=== PATIENT | female | born 1955 | race Caucasian/White ===

== ENCOUNTER 2023-06-02 18:05 | Emergency (ER) | payer BC, SELFPAY ==
[2023-06-02] VITALS (17 sets, daily range): BP systolic 149–162; BP diastolic 84–94; PULSE 65–84; RESP 11–20; TEMP 36.8; O2SAT 97–99; BMI 23.8
--- NOTE | 2023-06-02 18:24 | ECG_ITS ---
[facility] Test Date: 2023-06-02 Pat Name: SONIA OCONNOR Department: Room: - Gender: Female [employer] Professional: : 1955 Requested By: [id number] Order Number: [id number] Reading MD: ANNA MYLES Measurements Intervals [place]en Rate: 65 P: 61 NH: 152 QRS: 61 QRSD: 66 T: 54 QT: 394 QTc: 406 Interpretive Statements 1100 Sinus rhythm 8102 Low QRS voltage in chest leads 9120 atypical ECG No previous ECG available for comparison Electronically Signed On 06-04-2023 5:47:20 EDT by ANNA MYLES
--- NOTE | 2023-06-02 18:26 | ED.CHESTPAI1 ---
HPI - Chest Pain General Chief Complaint: Chest Pain Stated Complaint: Adbominal Pain Time Seen by Provider: 06/02/23 18:17 Source: patient Mode of arrival: walk-in Limitations: no limitations History of Present Illness HPI narrative: patient is a 68-year-old female who presents to the emergency department for the evaluation of left upper quadrant abdominal pain radiating into the chest for the last hour. She states that the pain is subsiding some at this time. It does radiate into her back. She denies fevers, she had upper respiratory symptoms over a week ago that have resolved at this time. She takes medication for acid reflux. She has had no vomiting or diarrhea. No urinary symptoms. No flank pain. She does use Ozempic. She denies any history of coronary artery disease, diabetes, high blood pressure. Symptoms began at rest. Risk Factors Coronary artery disease risk factors: none Related Data Home Medications Medication Instructions Recorded Confirmed omeprazole 40 mg capsule,delayed 40 mg PO DAILY 06/02/23 06/02/23 release semaglutide 1 mg/dose (2 mg/1.5 1 mg subcut QWEEK 06/02/23 06/02/23 mL) subcutaneous pen injector (Ozempic) Previous Rx's Medication Instructions Recorded hyoscyamine sulfate 0.125 mg 0.125 mg PO Q6H PRN abdominal pain 06/02/23 tablet (Levsin) #12 tabs ondansetron 4 mg disintegrating 4 mg PO Q6H PRN nausea and 06/02/23 tablet vomiting #12 tabs sucralfate 1 gram tablet (Carafate) 1 g PO Q6H PRN abdominal pain #12 06/02/23 tabs Allergies Allergy/AdvReac Type Severity Reaction Status Date / Time codeine AdvReac Nausea Verified 06/02/23 18:22 Review of Systems ROS Constitutional Denies: fever or chills Cardiovascular Reports: chest pain; Denies: shortness of breath when lying down Respiratory Denies: shortness of breath or cough Gastrointestinal Reports: abdominal pain; Denies: nausea, vomiting or diarrhea Genitourinary Denies: painful urination Musculoskeletal Reports: back pain Integumentary/Breast Denies: rash Neurological Denies: headache Hematologic/Lymphatic Denies: easy bruising Allergic/Immunologic Denies: hives PFSH PFSH Social History Smoking status: Former smoker Exam Narrative Exam Narrative: Gen.: Awake, alert, in no distress Head: Normocephalic, atraumatic ENT: Moist mucous membranes Respiratory: No respiratory distress, lungs clear bilaterally Cardio: Regular rate and rhythm Gastrointestinal: Abdomen is soft, nondistended and nontender to palpation; no guarding or rebound, no pulsatile masses Extremities: Moves extremities equally, no pedal edema Psych: Normal mood and affect Neuro: No focal neuro deficit Skin: Warm, dry, intact Constitutional Vital Signs, click to edit/add: Last Vital Signs Temp 98.2 F 06/02/23 18:17 Pulse 66 06/02/23 19:40 Resp 16 06/02/23 19:40 BP 149/84 H 06/02/23 19:38 Pulse Ox 98 06/02/23 19:40 O2 Del Method Room Air 06/02/23 18:30 Course Vital Signs Vital signs: Vital Signs Pulse Rate 66 06/02/23 18:14 Respiratory Rate 14 06/02/23 18:14 Pulse Oximetry 99 06/02/23 18:14 Temperature 98.2 F 06/02/23 18:17 Pulse Rate 66 06/02/23 19:40 Respiratory Rate 16 06/02/23 19:40 Blood Pressure 149/84 H 06/02/23 19:38 Pulse Oximetry 98 06/02/23 19:40 Oxygen Delivery Method Room Air 06/02/23 18:30 MDM - Chest Pain MDM Narrative Medical decision making narrative: patient with no EKG changes, stable lab studies. Minimal elevation of LFTs noted. Bilirubin is normal and the patient has no right upper quadrant tenderness. We had difficulty obtaining IV access and the patient refused additional attempts to place an IV. I tried to explain to the patient the need for IV access given chest pain and abdominal pain in the Emergency Room. She is agreeable to a lab draw but no further attempts for IV. Troponin is within normal limits, abdominal x-rays and chest x-ray with no acute process although by my interpretation, the patient has constipation noted to the left abdomen. Chest pain resolved in the Emergency Room after gastrointestinal cocktail, aspirin and Zofran. She was reexamined by attending physician, Dr. Lea, she is not agreeable to staying for repeat troponin. Abdomen is soft and benign on recheck by attending physician. Heart score is low as the patient has no significant risk factors. She is instructed to return to the Emergency Room if symptoms change or worsen. She will be placed on Carafate, Zofran, Levsin. Return to the Emergency Room if symptoms change or worsen Medical Records Data Attestation: I reviewed the patient's medical records. Lab Data Attestation: I reviewed the patient's lab results. Labs: Lab Results 06/02/23 Range/Units 18:45 WBC 7.3 (4.0-11.0) 10^3/uL RBC 4.41 (4.20-5.40) 10^6/uL Hgb 13.8 (12.0-16.0) g/dL Hct 41.5 (36.0-48.0) % MCV 94.1 (81.0-99.0) fL MCH 31.3 (26.7-34.0) pg MCHC 33.3 (29.9-35.2) g/dL RDW 12.2 (11.0-15.0) % Plt Count 243 (150-450) 10^3/uL MPV 10.7 (9.5-13.5) fL Neut % (Auto) 48.4 (43.0-75.0) % Lymph % (Auto) 38.5 (20.5-60.0) % [place] % (Auto) 9.6 (1.7-12.0) % Eos % (Auto) 2.3 (0.9-7.0) % Baso % (Auto) 1.1 (0.2-2.0) % Neut # (Auto) 3.5 (1.4-6.5) 10^3/uL Lymph # (Auto) 2.8 (1.2-3.8) 10^3/uL [place] # (Auto) 0.7 (0.3-0.8) 10^3/uL Eos # (Auto) 0.2 (0.0-0.7) 10^3/uL Baso # (Auto) 0.1 (0.0-0.1) 10^3/uL Abs Immat Gran (auto) 0.01 (0.00-0.03) 10^3/uL Imm/Tot Granulo (auto) 0.1 (0.0-0.5) % PT 10.1 (9.0-11.6) sec INR 0.95 APTT 35.9 (22.3-36.2) sec Sodium 139 (136-145) mmol/L Potassium 3.7 (3.5-5.1) mmol/L Chloride 104 (98-107) mmol/L Carbon Dioxide 29.2 (21.0-32.0) mmol/L Anion Gap 9.5 BUN 13.0 (7.0-18.0) mg/dL Creatinine 0.74 (0.55-1.02) mg/dL Est GFR ( Amer) >60 (>=60) Est GFR (Non-Af Amer) >60 (>=60) BUN/Creatinine Ratio 17.6 Glucose 88 (74-106) mg/dL Calcium 8.7 (8.5-10.1) mg/dL Total Bilirubin 0.5 (0.2-1.0) mg/dL AST 117 H (15-37) U/L ALT 71 H (14-59) U/L Alkaline Phosphatase 75 (46-116) U/L Troponin I High Sens <4.0 L (4.0-51.3) pg/mL Total Protein 7.2 (6.4-8.2) g/dL Albumin 3.8 (3.4-5.0) g/dL Globulin 3.4 g/dL Albumin/Globulin Ratio 1.1 Lipase 80.0 (73.0-393.0) U/L Imaging Data Abdominal x-ray: Attestation: I have reviewed the pertinent imaging results. Radiologist's impression: Procedure: XR acute abdomen series EXAM TYPE: XR acute abdomen series EXAM DATE AND TIME: 06/02/2023 4:26 PM PDT INDICATION: 68 years old Female with COMPARISON: None. TECHNIQUE: Frontal view of the chest. Supine and upright views of the abdomen. FINDINGS: No pneumothorax, pleural effusion or focal consolidation. Heart size is within normal limits. Normal nonobstructive bowel gas pattern. No subdiaphragmatic free intraperitoneal air. No pathologic calcifications. There is an S-shaped thoracolumbar scoliosis, convexity of the thoracic curve to the right and the lumbar curve to the left. IMPRESSION: Nonspecific abdomen. Electronically authenticated by: Lili BUCHANAN Date: 06/02/2023 19:59 ECG Data Attestation: I personally reviewed and interpreted this ECG as follows: (normal sinus rhythm at a rate of sixty-five, no acute ST elevation or ectopy. EKG reviewed by attending physician) Heart Score History: Slightly/Non-Suspicious ECG: Normal Age: >45-<65 years Risk Factors: 1 or 2 Risk Factors Troponin: <Normal Limit Total Heart Score Recommendations & Risks:: 2 Discharge Plan Discharge Chief Complaint: Chest Pain Clinical Impression: Abdominal pain, Chest pain Patient Disposition: Home, Self-Care Time of Disposition Decision: 20:16 Condition: Good Prescriptions / Home Meds: New sucralfate [Carafate] 1 gram tablet 1 g PO Q6H PRN (Reason: abdominal pain) Qty: 12 0RF hyoscyamine sulfate [Levsin] 0.125 mg tablet 0.125 mg PO Q6H PRN (Reason: abdominal pain) Qty: 12 0RF ondansetron 4 mg tablet,disintegrating 4 mg PO Q6H PRN (Reason: nausea and vomiting) Qty: 12 0RF No Action Ozempic 1 mg/dose (2 mg/1.5 mL) pen injector 1 mg subcut QWEEK omeprazole 40 mg capsule,delayed release(DR/EC) 40 mg PO DAILY Instructions: Chest Pain (ED), Abdominal Pain (ED) Stand Alone Forms: Portal Instructions Referrals: Physician,Non-Staff, MD [Primary Care Provider] - 1 week
[2023-06-02] MEDS: ASPIRIN 81 MG TAB.CHEW 162 MG PO (18:49)
[2023-06-02] MEDS: ONDANSETRON 4 MG RAPDIS TABLET SL (18:49)
[2023-06-02] MEDS: lidocaine HCL 15 ML, MAG HYDROX/ALUMINUM HYD/SIMETH 30 ML, HYOSCYAMINE SULFATE 0.25 MG PO (18:50)
[2023-06-02 18:52] LABS: Basophils Absolute Auto 0.1 10^3/uL (0.0-0.1); Basophils Percent Auto 1.1 % (0.2-2.0); Eosinophils Absolute Auto 0.2 10^3/uL (0.0-0.7); Eosinophils Percent Auto 2.3 % (0.9-7.0); Hematocrit 41.5 % (36.0-48.0); Hemoglobin 13.8 g/dL (12.0-16.0); Immature Granulocytes Abs Auto 0.01 10^3/uL (0.00-0.03); Immature Granulocytes Pct Auto 0.1 % (0.0-0.5); Lymphocytes Absolute Auto 2.8 10^3/uL (1.2-3.8); Lymphocytes Percent Auto 38.5 % (20.5-60.0); Mean Corpuscular HGB Conc 33.3 g/dL (29.9-35.2); Mean Corpuscular Hemoglobin 31.3 pg (26.7-34.0); Mean Corpuscular Volume 94.1 fL (81.0-99.0); Mean Platelet Volume 10.7 fL (9.5-13.5); Monocytes Absolute Auto 0.7 10^3/uL (0.3-0.8); Monocytes Percent Auto 9.6 % (1.7-12.0); Neutrophils Absolute Auto 3.5 10^3/uL (1.4-6.5); Neutrophils Percent Auto 48.4 % (43.0-75.0); Platelet Count 243 10^3/uL (150-450); Red Blood Count 4.41 10^6/uL (4.20-5.40); Red Cell Distribution Width 12.2 % (11.0-15.0); White Blood Count 7.3 10^3/uL (4.0-11.0)
[2023-06-02 19:07] LABS: Alanine Aminotransferase 71 U/L (14-59); Albumin Globulin Ratio 1.1; Albumin Level 3.8 g/dL (3.4-5.0); Alkaline Phosphatase 75 U/L (46-116); Anion Gap 9.5; Aspartate Amino Transferase 117 U/L (15-37); BUN Creatinine Ratio 17.6; Bilirubin Total 0.5 mg/dL (0.2-1.0); Calcium 8.7 mg/dL (8.5-10.1); Carbon Dioxide 29.2 mmol/L (21.0-32.0); Chloride 104 mmol/L (98-107); Estimated GFR (African America >60 (>=60); Estimated GFR (Non-African Ame >60 (>=60); Globulin 3.4 g/dL; Glucose 88 mg/dL (74-106); INR 0.95; Partial Thromboplastin Time 35.9 sec (22.3-36.2); Potassium 3.7 mmol/L (3.5-5.1); Prothrombin Time 10.1 sec (9.0-11.6); Sodium 139 mmol/L (136-145); Total Protein 7.2 g/dL (6.4-8.2)
[2023-06-02 19:10] LABS: Troponin I High Sensitivity <4.0 pg/mL (4.0-51.3)
--- NOTE | 2023-06-02 19:20 | XR_ITS ---
The [address] [address] Patient Name: SONIA OCONNOR MRN: [id number] date: 1955 Sex: F Assigned Patient Location: ER Current Patient Location: ED.MAIN Accession/Order Number: [id number] Exam Date: 06/02/2023 19:26 Report Date: 06/02/2023 19:59 At the request of: AMBER BUNCH Procedure: XR acute abdomen series EXAM TYPE: XR acute abdomen series EXAM DATE AND TIME: 06/02/2023 4:26 PM PDT INDICATION: 68 years old Female with COMPARISON: None. TECHNIQUE: Frontal view of the chest. Supine and upright views of the abdomen. FINDINGS: No pneumothorax, pleural effusion or focal consolidation. Heart size is within normal limits. Normal nonobstructive bowel gas pattern. No subdiaphragmatic free intraperitoneal air. No pathologic calcifications. There is an S-shaped thoracolumbar scoliosis, convexity of the thoracic curve to the right and the lumbar curve to the left. XR/XR acute abdomen series IMPRESSION: Nonspecific abdomen. Electronically authenticated by: Lili BUCHANAN Date: 06/02/2023 19:59
[2023-06-02 21:54] LABS: Bilirubin Urine NEGATIVE (NEGATIVE); Blood Urine NEGATIVE (NEGATIVE); Clarity Urine CLEAR (CLEAR); Color Urine LT. YELLOW (YELLOW); Glucose Urine UA NEGATIVE (NEGATIVE); Ketones Urine NEGATIVE (NEGATIVE); Leukocyte Esterase Urine NEGATIVE (NEGATIVE); Nitrite Urine NEGATIVE (NEGATIVE); Protein Urine NEGATIVE (NEG/TRACE)
[2023-06-02 21:55] LABS: Urine Microscopic Indicated NO
== END 2023-06-02 20:26 | disposition home or self-care (01) ==
PROVIDERS: Physician Assistant; Emergency Provider Internal Medicine
DX: R07.9 Chest pain, unspecified (principal); R10.9 Unspecified abdominal pain; K21.9 Gastro-esophageal reflux disease without esophagitis; Z79.899 Other long term (current) drug therapy; Z87.891 Personal history of nicotine dependence
CPT/HCPCS: 36415; 74022; 80053; 81003; 83690; 84484; 85025; 85610; 85730; 93005; 99285

== ENCOUNTER 2023-12-17 21:55 | Emergency (ER) | payer BC, SELFPAY ==
[2023-12-17 22:07] VITALS: BP 132/90; PULSE 104; TEMP 37.4; O2SAT 97; BMI 24.9
[2023-12-17 22:51] LABS: Influenza Virus A Antigen Negative; Influenza Virus B Antigen Negative; SARS-CoV-2 Ag NEGATIVE (NEGATIVE)
[2023-12-17 22:52] LABS: Internal Control Within Normal Limits
[2023-12-17] MEDS: FAMOTIDINE/PF 20 MG/2 ML VIAL IV (23:03)
[2023-12-17] MEDS: ONDANSETRON PF 4 MG/2 ML VIAL IV (23:03)
[2023-12-17] MEDS: 0.9 % SODIUM CHLORIDE 1,000 ML 1000 ML IV (23:04)
[2023-12-17 23:07] LABS: Hematocrit 46.2 % (36.0-48.0); Mean Corpuscular HGB Conc 32.5 g/dL (29.9-35.2); Mean Corpuscular Hemoglobin 31.4 pg (26.7-34.0); Mean Corpuscular Volume 96.9 fL (81.0-99.0); Mean Platelet Volume 11.9 fL (9.5-13.5); Platelet Count 177 10^3/uL (150-450); Red Blood Count 4.77 10^6/uL (4.20-5.40); Red Cell Distribution Width 12.8 % (11.0-15.0); White Blood Count 11.9 10^3/uL (4.0-11.0)
--- NOTE | 2023-12-17 23:15 | ED_ITS ---
HPI HPI - General Adult General Chief complaint: Nausea/Vomiting/Diarrhea Stated complaint: VOMITTING, DIARRHEA Time Seen by Provider: 12/17/23 22:13 Source: patient Mode of arrival: Wheelchair Limitations: no limitations History of Present Illness HPI narrative: This 68-year-old female presents for evaluation of nausea, vomiting and diarrhea that has been constant since 4 PM. 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 She is having chills, shakes and has had multiple episodes of vomiting and diarrhea. She is having abdominal cramping and states she feels like she has done 100 situps. She denies any chest pain or shortness of breath. She is not diabetic. She does not have a history of any kidney disease. She denies any recent change in her diet. She has not had any recent travel or cruciate vacations. Related Data Home Medications ?Medication ?Instructions ?Recorded ?Confirmed famotidine 20 mg tablet 20 mg PO .qhs 12/17/23 12/17/23 pantoprazole 40 mg tablet,delayed 40 mg PO QDAY 12/17/23 12/17/23 release Allergies Allergy/AdvReac Type Severity Reaction Status Date / Time codeine AdvReac Nausea Verified 12/17/23 22:07 Opioid HPI Opioid Management Most Recent Opioid Data: Last Pain Scale 5 06/02/23 18:30 Last ED Pain Assessment 06/02/23 18:30 Review of Systems ROS Status of ROS 10 or more systems reviewed and unremark able except as noted in history and below PFSH PFSH Social History Smoking status: Former smoker Exam Narrative Exam Narrative: Nurses note and vital signs reviewed and patient is not hypoxic. She is noted to be mildly tachycardic with a pulse 104 on arrival with a low-grade fever 99.4. General: Actively vomiting adult female, no respiratory distress Skin: Warm, slightly diaphoretic Head: Normocephalic, atraumatic Eye: Normal conjunctiva, no drainage, EOMI. PERRL. No scleral icterus Ears, Nose, Mouth, and Throat: oral mucosa is dry Cardiovascular: Regular Rate and Rhythm S1S2, no murmurs, rubsor gallops Respiratory: Patient is in no distress, no accessory muscle use, lungs are clear to auscultation, no wheezing, rales or rhonchi Back: non-tender, no CVA tenderness bilaterally to percussion. GI: Soft, flat, generalized tenderness with no rebound, guarding or rigidity Musculoskeletal: The patient has no evidence of calf tenderness, no pitting edema, symmetrical pulses noted bilaterally Neurological: A&O x4, normal speech Psychiatric: Cooperative Constitutional Vital Signs, click to edit/add: Last Vital Signs Temp 99.1 F 12/17/23 23:41 Pulse 91 H 12/17/23 23:41 Resp 16 12/17/23 23:41 BP 99/55 12/17/23 23:41 Pulse Ox 100 12/17/23 23:41 O2 Del Method Room Air 12/17/23 23:41 Course Vital Signs Vital signs: Vital Signs Temperature 99.4 F 12/17/23 22:07 Pulse Rate 104 H 12/17/23 22:07 Respiratory Rate 16 12/17/23 22:07 Blood Pressure 132/90 12/17/23 22:07 Pulse Oximetry 97 12/17/23 22:07 Oxygen Delivery Method Room Air 12/17/23 22:07 Temperature 99.1 F 12/17/23 23:41 Pulse Rate 91 H 12/17/23 23:41 Respiratory Rate 16 12/17/23 23:41 Blood Pressure 99/55 12/17/23 23:41 Pulse Oximetry 100 12/17/23 23:41 Oxygen Delivery Method Room Air 12/17/23 23:41 Medical Decision Making MDM Narrative Medical decision making narrative: This 68-year-old female presents for evaluation of acute onset of nausea vomiting diarrhea. Her grandson who is 3 years old had similar symptoms and she babysits for him. She also has been told that she had gallstones in the past. Arrival she was actively vomiting. She states she had been nonstop vomiting for the past 4 hours. He states she felt like she had been doing sit ups but her abdomen is otherwise soft and nontender. She had not had a fever but was having some chills. An IV was placed and she was medicated with IV fluids Zofran Pepcid and Toradol. On reevaluation she was feeling much better. She was tolerating ice chips. Team labs are ordered and are reviewed. She is a mildly elevated white count of 11.9 with a normal hemoglobin. Electrolytes are normal. She has elevated A LT and alkaline phosphatase with a normal AST, total bilirubin and lipase. In light of the elevated LFTs and history of gallstones a CT scan was ordered. CT scan is included in the body of this report. It does show a gallstone in the fundus of the gallbladder with a large volume of liquid stool throughout the small bowel. There is no sign of bowel obstruction. There is also some edema noted in the cervix. 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 She is not having any vaginal bleeding or lower abdominal pain. There is no ultrasound available at this time to further evaluate this. She was given a copy of her CT scan to share with her CYBER SOFTWARE ENGINEER and family physician. At this time she is feeling better and wishes to be discharged home. She'll be given an additional dose of Zofran before her IV is taken out. She will be discharged home at the Zofran to take for ongoing nausea. I discouraged her from using antidiarrheals as her symptoms are likely viral in nature and/or food borne as the CT scan noted. Either way I suggested that she not take antidiarrheals as it would be better for her to get the diarrhea out of her abdomen. She was encouraged to follow a clear liquid diet slowly advance her diet as tolerated. She will be referred outpatient general surgery for further evaluation of the gallstones seen on the CAT scan. Medical Records Medical records narrative: [place] [address] CT Scan Report Signed Patient: SONIA COLBY MR#: [id number] : 1955 Acct:[id number] Age/Sex: 68 / F ADM Date: 12/17/23 Loc: ER Attending Dr: Ordering Physician: Giselle Villalobos Date of Service: 12/18/23 Procedure(s): CT abdomen pelvis w con Accession Number(s): [id number] cc: Physician,Non-Staff Zaki~ [facility] [place] [id number] Patient Name: SONIA COLBY MRN: [id number] date: 1955 Sex: F Assigned Patient Location: ER Current Patient Location: ER Accession/Order Number: [id number] Exam Date: 12/18/2023 00:58 Report Date: 12/18/2023 01:34 At the request of: GISELLE MARKER Procedure: CT abdomen pelvis w con CT OF THE ABDOMEN AND PELVIS WITH CONTRAST: 12/18/2023 12:58 AM EDT CLINICAL HISTORY: Abdominal pain with elevated LFTs. Nausea, vomiting and diarrhea x1 day. COMPARISONS: None. TECHNIQUE: Thin section axial CT images were obtained from the lung bases to the pubis symphysis. This CT exam was performed using one or more of the following dose reduction techniques: Automated exposure control, adjustment of the mA and/or kV according to patient size, or use of iterative reconstruction technique. Thin section coronal and sagittal images were reconstructed from the axial data set. All images were reviewed and interpreted. CONTRAST: Intravenous contrast was administered. Type and amount is documented at the local institution. FINDINGS: LUNG BASES: No consolidation or pleural fluid. LIVER: Normal. Normal portal vein enhancement. GALLBLADDER: There is a distal peripherally calcified gallstone in the distal fundus. Gallbladder mildly distended with some uniform a mild peripheral wall enhancement and thickening with trace pericholecystic fluid. Possibility of early acute cholecystitis is raised. BILIARY TREE: No intrahepatic or common bile duct distention. PANCREAS: Normal. SPLEEN: Normal. ADRENALS: Normal. KIDNEYS: Normal, without urolithiasis or hydronephrosis. URINARY BLADDER: Grossly unremarkable. PELVIC STRUCTURES: There is question of some mild inflammation region of the cervix. Correlate with clinical exam and direct inspection/visualization. The uterus and ovaries are otherwise negative. Could be menstrual related. Exclude cervicitis. GE JUNCTION, STOMACH AND BOWEL: There is a small sliding-type hernia. There is gastroesophageal reflux with fluid in the distal esophagus. Fluid-filled stomach with some mild mild uniform wall enhancement gastric cardia and fundus and mid body with some borderline wall thickening. Fluid extends into the duodenum and throughout multiple proximal small bowel loops and distal small bowel loops in the abdomen and pelvis. Small bowel is not overly distended. There is some mild uniform enhancement of bowel and borderline thickening in the jejunal/left upper quadrant loops. Findings suggest acute gastroenteritis likely due to food borne illness. Correlate symptomatically and with history. No evidence of bowel obstruction. Contiguous fluid throughout distal nondistended small bowel loops are noted and large bowel in the cecum and ascending portions as well. Large bowel otherwise negative. There is no significant diverticulosis. There is no evidence of diverticulitis. No acute colitis. APPENDIX: No active disease with normal appendix. LYMPH NODES: No pathologically enlarged lymph nodes identified. PERITONEUM: No intraperitoneal free air. No free intraperitoneal fluid. MESENTERY: Unremarkable. RETROPERITONEUM: The retroperitoneum is unremarkable. AORTA: Normal caliber aorta and iliac arteries. Aortic caliber BODY WALL: No body wall mass. OSSEOUS STRUCTURES: Levoscoliotic curvature upper lumbar spine with some degenerative disc and endplate changes at lower thoracic and upper lumbar disc levels. No acute osseous findings or destructive process. No fractures. CT/CT abdomen pelvis w con IMPRESSION: 1. Distal gallbladder stone with mild uniform wall thickening and enhancement of pericholecystic fluid raising concern for acute early cholecystitis. 2. Nonspecific fluid throughout stomach, small bowel loops extending to cecum and ascending large bowel with some mild borderline thickening of gastric and left upper quadrant jejunal loops. Could reflect nonspecific acute gastroenteritis. 3. Slightly prominent appearance of cervix with some edema surrounding the cervix of uterus. Query acute cervicitis versus underlying mass. Correlate with clinical exam and direct visualization. Electronically authenticated by: ELIZABETH HINTON Date: 12/18/2023 01:34 Lab Data Labs: Lab Results 12/17/23 12/17/23 Range/Units 22:15 22:50 WBC 11.9 H (4.0-11.0) 10^3/uL RBC 4.77 (4.20-5.40) 10^6/uL Hgb 15.0 (12.0-16.0) g/dL Hct 46.2 (36.0-48.0) % MCV 96.9 (81.0-99.0) fL MCH 31.4 (26.7-34.0) pg MCHC 32.5 (29.9-35.2) g/dL RDW 12.8 (11.0-15.0) % Plt Count 177 (150-450) 10^3/uL MPV 11.9 (9.5-13.5) fL Seg Neuts % (Manual) 82.0 Band Neutrophils % 16.0 H (0-5) % Lymphocytes % (Manual) 1.0 L (20.5-60.0) % Atypical Lymphs % (Man) 0.0 % Monocytes % (Manual) 1.0 L (1.7-12.0) % Eosinophils % (Manual) 0.0 L (0.9-7.0) % Basophils % (Manual) 0.0 L (0.2-2.0) % Neutrophils # (Manual) 9.75 H (1.4-6.5) 10^3/uL Band Neutrophils # 1.9 H (0.0-0.3) 10^3/uL Lymphocytes # (Manual) 0.11 L (1.20-3.80) 10^3/uL Abs Atypical Lymphs Man 0.00 Monocytes # (Manual) 0.11 L (0.30-0.80) 10^3/uL Eosinophils # (Manual) 0.00 (0.00-0.70) 10^3/uL Basophils # (Manual) 0.00 (0.00-0.10) 10^3/uL Sodium 141 (136-145) mmol/L Potassium 3.9 (3.5-5.1) mmol/L Chloride 104 (98-107) mmol/L Carbon Dioxide 24.5 (21.0-32.0) mmol/L Anion Gap 16.4 BUN 17.0 (7.0-18.0) mg/dL Creatinine 0.83 (0.55-1.02) mg/dL Est GFR ( Amer) >60 (>=60) Est GFR (Non-Af Amer) >60 (>=60) BUN/Creatinine Ratio 20.5 Glucose 160 H (74-106) mg/dL Calcium 8.9 (8.5-10.1) mg/dL Total Bilirubin 0.9 (0.2-1.0) mg/dL AST 33 (15-37) U/L ALT 258 H (14-59) U/L Alkaline Phosphatase 129 H (46-116) U/L Total Protein 7.7 (6.4-8.2) g/dL Albumin 3.9 (3.4-5.0) g/dL Globulin 3.8 g/dL Albumin/Globulin Ratio 1.0 Lipase 24.0 (16.0-77.0) U/L Influenza Type A Ag Negative Influenza Type B Ag Negative SARS-CoV-2 Ag (CV2AG) Negative (NEGATIVE) Discharge Plan Discharge Stand Alone Forms: Portal Instructions Chief Complaint: Nausea/Vomiting/Diarrhea Clinical Impression: Gastroenteritis Patient Disposition: Home, Self-Care Time of Disposition Decision: 01:50 Condition: Good Prescriptions / Home Meds: No Action famotidine 20 mg tablet 20 mg PO .qhs pantoprazole 40 mg tablet,delayed release (DR/EC) 40 mg PO QDAY Print Language: Bahamian Instructions: Gastroenteritis (ED), Acute Nausea and Vomiting (ED), Acute Diarrhea (ED) Referrals: Physician,Non-Staff, MD [Primary Care Provider] - 1 week
[2023-12-17 23:26] LABS: Alanine Aminotransferase 258 U/L (14-59); Albumin Level 3.9 g/dL (3.4-5.0); Alkaline Phosphatase 129 U/L (46-116); Anion Gap 16.4; Aspartate Amino Transferase 33 U/L (15-37); BUN Creatinine Ratio 20.5; Bilirubin Total 0.9 mg/dL (0.2-1.0); Calcium 8.9 mg/dL (8.5-10.1); Carbon Dioxide 24.5 mmol/L (21.0-32.0); Chloride 104 mmol/L (98-107); Estimated GFR (African America >60 (>=60); Estimated GFR (Non-African Ame >60 (>=60); Globulin 3.8 g/dL; Glucose 160 mg/dL (74-106); Potassium 3.9 mmol/L (3.5-5.1); Sodium 141 mmol/L (136-145); Total Protein 7.7 g/dL (6.4-8.2)
[2023-12-17 23:41] VITALS: BP 99/55; PULSE 91; TEMP 37.3; O2SAT 100
[2023-12-17] MEDS: KETOROLAC TROMETHAMINE 30 MG/ML VIAL 15 MG IVP (23:47)
[2023-12-17 23:50] LABS: Band Neutrophils Absolute 1.9 10^3/uL (0.0-0.3); Segmented Neut Absolute Manual 9.75 10^3/uL (1.4-6.5)
[2023-12-17 23:51] LABS: Lymphocytes Absolute Manual 0.11 10^3/uL (1.20-3.80); Monocytes Absolute Manual 0.11 10^3/uL (0.30-0.80)
[2023-12-18] MEDS: DEXTROSE 5%-LACTATED RINGERS 1,000 ML 500 ML IV (00:25)
--- NOTE | 2023-12-18 00:31 | CT_ITS ---
The [address] [address] Patient Name: SONIA COLBY MRN: [id number] date: 1955 Sex: F Assigned Patient Location: ER Current Patient Location: ER Accession/Order Number: [id number] Exam Date: 12/18/2023 00:58 Report Date: 12/18/2023 01:34 At the request of: VIVIANE MARKER Procedure: CT abdomen pelvis w con CT OF THE ABDOMEN AND PELVIS WITH CONTRAST: 12/18/2023 12:58 AM EDT CLINICAL HISTORY: Abdominal pain with elevated LFTs. Nausea, vomiting and diarrhea x1 day. COMPARISONS: None. TECHNIQUE: Thin section axial CT images were obtained from the lung bases to the pubis symphysis. This CT exam was performed using one or more of the following dose reduction techniques: Automated exposure control, adjustment of the mA and/or kV according to patient size, or use of iterative reconstruction technique. Thin section coronal and sagittal images were reconstructed from the axial data set. All images were reviewed and interpreted. CONTRAST: Intravenous contrast was administered. Type and amount is documented at the local institution. FINDINGS: LUNG BASES: No consolidation or pleural fluid. LIVER: Normal. Normal portal vein enhancement. GALLBLADDER: There is a distal peripherally calcified gallstone in the distal fundus. Gallbladder mildly distended with some uniform a mild peripheral wall enhancement and thickening with trace pericholecystic fluid. Possibility of early acute cholecystitis is raised. BILIARY TREE: No intrahepatic or common bile duct distention. PANCREAS: Normal. SPLEEN: Normal. ADRENALS: Normal. KIDNEYS: Normal, without urolithiasis or hydronephrosis. URINARY BLADDER: Grossly unremarkable. PELVIC STRUCTURES: There is question of some mild inflammation region of the cervix. Correlate with clinical exam and direct inspection/visualization. The uterus and ovaries are otherwise negative. Could be menstrual related. Exclude cervicitis. GE JUNCTION, STOMACH AND BOWEL: There is a small sliding-type hernia. There is gastroesophageal reflux with fluid in the distal esophagus. Fluid-filled stomach with some mild mild uniform wall enhancement gastric cardia and fundus and mid body with some borderline wall thickening. Fluid extends into the duodenum and throughout multiple proximal small bowel loops and distal small bowel loops in the abdomen and pelvis. Small bowel is not overly distended. There is some mild uniform enhancement of bowel and borderline thickening in the jejunal/left upper quadrant loops. Findings suggest acute gastroenteritis likely due to food borne illness. Correlate symptomatically and with history. No evidence of bowel obstruction. Contiguous fluid throughout distal nondistended small bowel loops are noted and large bowel in the cecum and ascending portions as well. Large bowel otherwise negative. There is no significant diverticulosis. There is no evidence of diverticulitis. No acute colitis. APPENDIX: No active disease with normal appendix. LYMPH NODES: No pathologically enlarged lymph nodes identified. PERITONEUM: No intraperitoneal free air. No free intraperitoneal fluid. MESENTERY: Unremarkable. RETROPERITONEUM: The retroperitoneum is unremarkable. AORTA: Normal caliber aorta and iliac arteries. Aortic caliber BODY WALL: No body wall mass. OSSEOUS STRUCTURES: Levoscoliotic curvature upper lumbar spine with some degenerative disc and endplate changes at lower thoracic and upper lumbar disc levels. No acute osseous findings or destructive process. No fractures. CT/CT abdomen pelvis w con IMPRESSION: 1. Distal gallbladder stone with mild uniform wall thickening and enhancement of pericholecystic fluid raising concern for acute early cholecystitis. 2. Nonspecific fluid throughout stomach, small bowel loops extending to cecum and ascending large bowel with some mild borderline thickening of gastric and left upper quadrant jejunal loops. Could reflect nonspecific acute gastroenteritis. 3. Slightly prominent appearance of cervix with some edema surrounding the cervix of uterus. Query acute cervicitis versus underlying mass. Correlate with clinical exam and direct visualization. Electronically authenticated by: ELIZABETH HINTON Date: 12/18/2023 01:34
[2023-12-18 02:26] VITALS: BP 108/55; PULSE 92; O2SAT 97
[2023-12-18] MEDS: ONDANSETRON 4 MG RAPDIS TABLET SL (02:28)
[2023-12-18] MEDS: ONDANSETRON PF 4 MG/2 ML VIAL IV (02:28)
== END 2023-12-18 02:44 | disposition home or self-care (01) ==
PROVIDERS: Emergency Provider Emergency Medicine
DX: K52.9 Noninfective gastroenteritis and colitis, unspecified (principal); Z79.899 Other long term (current) drug therapy; Z87.891 Personal history of nicotine dependence; Z20.822 Contact with and (suspected) exposure to COVID-19
CPT/HCPCS: 36415; 74177; 80053; 83690; 85007; 85027; 87507; 87804; 87811; 96361; 96374; 96375; 96376; 99285; Q9967

== ENCOUNTER 2024-01-02 10:50 | Outpatient (OUT) | payer BC, SELFPAY ==
--- NOTE | 2024-01-02 | US_ITS ---
The [address] [address] Patient Name: SONIA COLBY MRN: [id number] date: 1955 Sex: F Assigned Patient Location: US Current Patient Location: US Accession/Order Number: [id number] Exam Date: 01/02/2024 10:52 Report Date: 01/02/2024 14:56 At the request of: GERRY STEVENSON Procedure: US right upper quadrant EXAM: US right upper quadrant HISTORY: . CALCULUS OF GALLBLADDER WITHOUT CHOLECYSTITIS K80.20 . COMPARISON: None. TECHNIQUE: Grayscale and color imaging was performed FINDINGS: The pancreas appears normal. The liver is normal in size. No masses are noted. Color-flow is noted in the portal and hepatic veins. Common bile duct was normal measuring 6 mm. Scanning of the gallbladder demonstrated echogenic foci within the gallbladder with shadowing consistent with gallstones. Gallbladder wall measured 2 mm. Patient had no pain upon scanning over the gallbladder. Right kidney measured 9.7 x 3.9 x 4 cm. No solid renal cortical masses or hydronephrosis was noted. There was a 3 mm nonobstructing calculus in the midpole. No fluid was noted in the right upper quadrant. US/US right upper quadrant IMPRESSION: 1. Cholelithiasis. No gallbladder wall thickening. Patient had no pain upon scanning over the gallbladder. 2. 3 mm nonobstructing right renal calculus. 3. The remainder of the right upper quadrant was unremarkable. Electronically authenticated by: LILIBETH GILLIS Date: 01/02/2024 14:56
== END 2024-01-02 10:51 | disposition home or self-care (01) ==
LOC: US 10:51
PROVIDERS: Visit Provider Surgery
DX: K80.20 Calculus of gallbladder without cholecystitis without obstruction (principal); N20.0 Calculus of kidney
CPT/HCPCS: 76705

== ENCOUNTER 2024-04-11 14:27 | Outpatient (OUT) | payer BC, SELFPAY ==
--- NOTE | 2024-04-11 10:01 | V.VEINS.HP ---
Vital Signs 04/11/24 14:32 Height 5 ft 2 in Weight 64.41 kg BMI 26.0 BP 118/56 BP Location Right Brachial BP Position Sitting BP Cuff Size Adult BP Source Manual Cuff Respiration 16 Pulse 64 Pulse Source Monitor Pulse Oximetry (%) 97 Oxygen Delivery Method Room Air Varicose Veins Patient is a 68 year old female in this day as a referral from her PCP Alanna Miller NP secondary to symptomatic varicosse veins of bilateral lower extrmities. 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 Marcelo Samuels MD personally performed the services described in this documentation, as scribed by Darien Flood RN in my presence and it is both accurate and complete. IDarien RN, am scribing for, and in the presence of, Dr. Marcelo Corbett and in the presence of the patient. aching, cramping, dull and tender 3 10 years Worsened in recent months: Yes standing and sitting elevating extremities and compression stockings Reports muscle spasms of leg, heaviness, limb pain and edema History of lower extremity trauma: No Superficial thrombophlebitis: No Family history of varicose veins: yes Has patient had previous lower extremity venous surgery: No Patient has previously received the following treatment(s) for lower extremity varicose veins: Reports none Does patient have a history of : yes Does patient intend to have future pregnancies: yes Has patient had lower extremity venous scan with relux testing: No Support hose used: Yes Problems walking or doing physical activity: No How does it affect you: has to stop and rest and elevate feet often due to pain Do you walk much: Yes Do you stand much: Yes Review of Systems ROS Narrative Marcelo Samuels MD personally performed the services described in this documentation, as scribed by Darien Flood RN in my presence and it is both accurate and complete. Darien Samuels RN, am scribing for, and in the presence of, Dr. Marcelo Corbett and in the presence of the patient. Status of ROS 10 or more systems reviewed and unremarkable except as noted in history and below Cardiovascular Reports: edema Neurological Reports: numbness in extremities and weakness in extremities Hematologic/Lymphatic Reports: easy bruising and easy bleeding [facility] Medical History (Updated 04/11/24 @ 11:24 by Darien Flood) Pain due to varicose veins of both lower extremities ?I83.813 - Varicose veins of bilateral lower extremities with pain (ICD-10) Nonalcoholic fatty liver ?K76.0 - Fatty (change of) liver, not elsewhere classified (ICD-10) Hyperlipemia ?E78.5 - Hyperlipidemia, unspecified (ICD-10) Migraine ?G43.909 - Migraine, unspecified, not intractable, without status migrainosus (ICD-10) Melanoma ?C43.9 - Malignant melanoma of skin, unspecified (ICD-10) Gastroesophageal reflux ?K21.9 - Gastro-esophageal reflux disease without esophagitis (ICD-10) Surgical History H/O melanoma excision ?Z98.890 - Other specified postprocedural states (ICD-10) ?Z85.820 - Personal history of malignant melanoma of skin (ICD-10) H/O exploratory laparotomy ?Z98.890 - Other specified postprocedural states (ICD-10) H/O tubal ligation ?Z98.51 - Tubal ligation status (ICD-10) Family History (Updated 04/11/24 @ 11:33 by Darine Flood) Mother Family history of CHF (congestive heart failure) Family history of diabetes mellitus Family history of hypertension Heart disease Father Family history of diabetes mellitus Family history of cancer Social History (Updated 04/11/24 @ 11:35 by Darien Flood) Within the past year, how often did you have a drink containing alcohol: never Score interpretation: A score less than 3 is consistent with normal alcohol consumption. Smoking status: Former smoker What tobacco products do you use: cigarettes Nicotine containing products detail: 0.8 pk/day for 48 years, quit in 2019 Non-prescribed substance use: denies use Meds Home Medications and Allergies Home Medications ?Medication ?Instructions ?Recorded ?Confirmed ?Type famotidine 20 mg tablet 20 mg PO .qhs 12/17/23 12/17/23 History pantoprazole 40 mg tablet,delayed 40 mg PO QDAY 12/17/23 12/17/23 History release folic acid 1 mg tablet 1 mg PO DAILY 04/11/24 04/11/24 History Allergies Allergy/AdvReac Type Severity Reaction Status Date / Time codeine AdvReac Nausea Verified 12/17/23 22:07 Exam Narrative Exam Narrative: Marcelo Samuels MD personally performed the services described in this documentation, as scribed by Darien Flood RN in my presence and it is both accurate and complete. IDarien RN, am scribing for, and in the presence of, Dr. Marcelo Corbett and in the presence of the patient. Constitutional Documenting provider has reviewed patient's vital signs: yes Common normals: oriented x3 Nutritional appearance: overweight Cardio Peripheral pulses: dorsalis pedis pulses present Extremity Common normals: normal capillary refill General: edema Right lower extremity: lower leg Right lower leg: inspection and palpation Left lower extremity: lower leg Left lower leg: inspection and palpation Neuro Common normals: oriented x3 Assessment and Plan Assessment and Plan (1) Pain due to varicose veins of both lower extremities: Plan Dr. Corbett examines patient and reviews results of bilateral leg reflux u/s. Patient and Dr. Corbett create plan of care. Bilateral leg reflux u/s reveals mild venous disease. Need for treatment at this time. Patient to r/u in future as necessar. Plan is for patient to continue use of bilateral leg knee high compression stockings. Marcelo Samuels MD personally performed the services described in this documentation, as scribed by Darien Flood RN in my presence and it is both accurate and complete. Darien Samuels RN, am scribing for, and in the presence of, Dr. Marcelo Corbett and in the presence of the patient. Procedures Procedure Instructions Procedures Dr. Corbett examines patient and reviews results of bilateral leg reflux u/s. Patient and Dr. Corbett create plan of care.
--- NOTE | 2024-04-11 14:31 | P.DS_ITS ---
Discharge Plan Discharge Disposition: Home, Self-Care Outpatient Diagnostics: [facility] Facility EST Comprehensive (Routine) Timeframe: 2 Weeks Facility: [facility] - Location: [facility] Ordered By: Marcelo Corbett Print Language: Anguillan
[2024-04-11 14:32] VITALS: BP 118/56; PULSE 64; O2SAT 97; BMI 26.0
--- NOTE | 2024-04-11 14:34 | VEIN_ITS ---
Patient Name: SONIA COLBY MR#: [id number] : 1955 Exam Date: 04/11/2024 Ordering Doctor: DR MARCELO BANDA M.D. RADIOLOGY REPORT PROCEDURE: [facility] - OFFICE VISIT INITIAL COMPARISON: None. PROGRESS NOTES: 68-year-old female who is referred by Dr. Small. The patient complains of bilateral lower extremity varicose veins with pain, significantly progressed over the course of the past year. 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 The patient's pain is rated at 3 on a scale of 1-10. The patient's symptoms are exacerbated by prolonged sitting and standing and are only partially relieved by rest and leg elevation. The patient has not worn compression stockings in the past. The patient denies any signs and symptoms to suggest arterial ischemia. The patient describes a family history of congestive heart failure, diabetes, hypertension and heart disease in her mother. Cancer and diabetes in her father. The patient has a 40 pack year history of smoking discontinuing 5 years ago in 2019. The patient does not drink alcohol. No prescription drug abuse. Patient's current medical conditions are significant for nonalcoholic fatty liver, hyperlipidemia, migraine, melanoma gastroesophageal reflux disease. Surgical history significant for melanoma would expect vision, exploratory lap and tubal ligation. No history of deep venous thrombus or pulmonary embolus. See separate history and physical for medication list. No prior treatment for varicose or spider veins. No prior use of compression stockings. Nursing notes were reviewed After history and physical exam I discussed at length the pathophysiology of venous hypertension and possible treatments, therapies and strategies available. We discussed at length the importance of elevating the lower extremities above the level of the heart, increased physical activity and compression stocking use. At this time I do not recommend any significant treatments for functional vein disease. I did recommend to patient that she should consider the use of compression stockings for her lower extremity edema The patient's lower extremity edema likely is not related to her venous disease in to be multifactorial, I favor mild lymphedema in light of the lack of heart disease, hypertension or significant venous insufficiency. Ultrasound venous reflux study performed the same day was discussed at length with the patient. The report demonstrates mild bilateral great saphenous, right small saphenous and left anterior accessory saphenous vein reflux. PHYSICAL EXAM: The right leg demonstrates mild scattered spider veins on the lower leg ankle and foot. No significant reticular or varicose veins. No active ulceration, skin discoloration. Mild subcutaneous edema. The left leg demonstrates mild scattered spider veins on the lower leg ankle and foot. No significant reticular or varicose veins. No active ulceration, skin discoloration. Mild subcutaneous edema. Both thighs, legs and feet were symmetrically warm to the touch. Good posterior tibial and dorsalis pedis pulses were present bilaterally. VEIN/[facility] Facility EST Comprehensive IMPRESSION: 1. Mild bilateral great, right small and left anterior accessory saphenous vein venous insufficiency 2. No significant lower extremity varicose veins 3. Mild bilateral lower extremity subcutaneous edema 4. No significant flow significant arterial disease 5. CEAP: C3, Ep, As, Pr PLAN: 1. Mild venous insufficiency, no treatments of her functional veins recommended at this time 2. Injection sclerotherapy for cosmesis if desired 3. Consider use of compression stockings for mild lymphedema Nurse notes, history and physical were reviewed and confirmed, see attached forms. The nurse was present throughout the physical exam and consultation Dictated by: Marcelo Banda MD on 04/13/2024 at 06:57 Approved by: Marcelo Banda MD on 04/13/2024 at 07:02
--- NOTE | 2024-04-11 14:34 | VEIN_ITS ---
Patient Name: SONIA COLBY MR#: [id number] : 1955 Exam Date: 04/11/2024 Ordering Doctor: DR MARCELO BANDA M.D. RADIOLOGY REPORT PROCEDURE: VC EXT VENOUS REFLUX KEVIN LMTD COMPARISON: None. INDICATIONS: I83.813 - Varicose veins of bilateral lower extremities with pain TECHNIQUE: Duplex imaging of the lower extremity to assess the deep and superficial venous system for the presence of deep or superficial venous incompetence and to document the location and severity of disease. The study includes evaluation of the great saphenous vein (GSV), anterior accessory saphenous vein (AASV) and small saphenous vein (SSV). Patient scanned in reverse Trendelenburg and standing. FINDINGS: RIGHT LOWER EXTREMITY: Saphenofemoral Junction Reflux: Yes 7.1mm 1.0 sec GSV: Diam (mm) Reflux/ Time (sec) Proximal Thigh 4.4 Yes 0.5 Mid Thigh 2.5 No Distal Thigh 3.0 No Prox Calf 2.9 Yes 0.4 Mid Calf 2.2 Yes 0.4 Saphenopopliteal Junction Reflux: 5.6mm Yes 1.0 SSV: Proximal Calf 6.0 Yes 0.6 Mid Calf 3.2 Yes 0.5 AASV: Proximal Thigh 2.8 No Mid Thigh 1.8 Yes 0.4 Distal Thigh Thrombi: Chronic thrombus mid SSV. Compressibility: Partial thrombus of mid SSV. Flow: Minimal deep venous reflux. Preforator: No significant perforators. Tech Note: No significant varicose veins. LEFT LOWER EXTREMITY: Saphenofemoral Junction Reflux: Yes 8.7 mm 1.1 sec GSV: Diam (mm) Reflux/Time (sec) Proximal Thigh 5.1 No Mid Thigh 2.5 No Distal Thigh 3.0 Yes 0.4 Prox Calf 2.0 No Mid Calf 1.4 Yes 0.6 Saphenopopliteal Junction Relux: 2.4 mm Yes 0.5 SSV: Proximal Calf 2.3 No Mid Calf 1.5 No AASV: Proximal Thigh 2.0 Yes 0.7 Mid Thigh 1.4 No Distal Thigh Thrombi: No chronic or acute thrombus. Compressibility: Normal. Flow: Normal. Tugboat Engineer: No significant perforators. Tech Note: No significant varicose veins. CONCLUSION: Mild bilateral great saphenous, right small saphenous and left anterior accessory saphenous vein reflux Dictated by: Marcelo Banda MD on 04/11/2024 at 15:55 Approved by: Marcelo Banda MD on 04/11/2024 at 16:21
--- NOTE | 2024-04-13 08:26 | V.VEINS.HP ---
Vital Signs 04/11/24 14:32 Height 5 ft 2 in Weight 64.41 kg BMI 26.0 BP 118/56 BP Location Right Brachial BP Position Sitting BP Cuff Size Adult BP Source Manual Cuff Respiration 16 Pulse 64 Pulse Source Monitor Pulse Oximetry (%) 97 Oxygen Delivery Method Room Air [facility] Medical History (Updated 04/11/24 @ 11:24 by Darien Flood) Pain due to varicose veins of both lower extremities ?I83.813 - Varicose veins of bilateral lower extremities with pain (ICD-10) Nonalcoholic fatty liver ?K76.0 - Fatty (change of) liver, not elsewhere classified (ICD-10) Hyperlipemia ?E78.5 - Hyperlipidemia, unspecified (ICD-10) Migraine ?G43.909 - Migraine, unspecified, not intractable, without status migrainosus (ICD-10) Melanoma ?C43.9 - Malignant melanoma of skin, unspecified (ICD-10) Gastroesophageal reflux ?K21.9 - Gastro-esophageal reflux disease without esophagitis (ICD-10) Surgical History H/O melanoma excision ?Z98.890 - Other specified postprocedural states (ICD-10) ?Z85.820 - Personal history of malignant melanoma of skin (ICD-10) H/O exploratory laparotomy ?Z98.890 - Other specified postprocedural states (ICD-10) H/O tubal ligation ?Z98.51 - Tubal ligation status (ICD-10) Family History (Updated 04/11/24 @ 11:33 by Darien Flood) Mother Family history of CHF (congestive heart failure) Family history of diabetes mellitus Family history of hypertension Heart disease Father Family history of diabetes mellitus Family history of cancer Social History (Updated 04/11/24 @ 11:35 by Darien Flood) Within the past year, how often did you have a drink containing alcohol: never Score interpretation: A score less than 3 is consistent with normal alcohol consumption. Smoking status: Former smoker What tobacco products do you use: cigarettes Nicotine containing products detail: 0.8 pk/day for 48 years, quit in 2019 Non-prescribed substance use: denies use Meds Home Medications and Allergies Home Medications ?Medication ?Instructions ?Recorded ?Confirmed ?Type famotidine 20 mg tablet 20 mg PO .qhs 12/17/23 12/17/23 History pantoprazole 40 mg tablet,delayed 40 mg PO QDAY 12/17/23 12/17/23 History release folic acid 1 mg tablet 1 mg PO DAILY 04/11/24 04/11/24 History Allergies Allergy/AdvReac Type Severity Reaction Status Date / Time codeine AdvReac Nausea Verified 12/17/23 22:07 Exam Constitutional Vital Signs, click to edit/add: Last Vital Signs Pulse 64 04/11/24 14:32 Resp 16 04/11/24 14:32 BP 118/56 04/11/24 14:32 Pulse Ox 97 04/11/24 14:32 Assessment and Plan Assessment and Plan Plan Dr. Corbett examines patient and reviews results of bilateral leg reflux u/s. Patient and Dr. Corbett create plan of care. Bilateral leg reflux u/s reveals mild venous disease. Need for treatment at this time. Patient to r/u in future as necessar. Plan is for patient to continue use of bilateral leg knee high compression stockings. IMarcelo MD personally performed the services described in this documentation, as scribed by Darien Flood RN in my presence and it is both accurate and complete. IDarien RN, am scribing for, and in the presence of, Dr. Marcelo Corbett and in the presence of the patient.
== END 2024-04-11 14:28 | disposition home or self-care (01) ==
PROVIDERS: PCP Internal Medicine; Visit Provider Internal Medicine
DX: I83.813 Varicose veins of bilateral lower extremities with pain (principal)
CPT/HCPCS: 93970; G0463